=== PATIENT | female | born 1985 | race American Indian/Alaskan Native ===

== ENCOUNTER 2018-07-14 14:46 | Emergency (ER) | payer BC ==
[2018-07-14] MEDS ORDERED: KEPPRA 500 MG in D5W 100 ML IV ONE (15:17)
[2018-07-14] MEDS ORDERED: ATIVAN IV ONE (15:20)
[2018-07-14] MEDS ORDERED: ATIVAN ONE (15:24)
--- NOTE | 2018-07-14 15:26 | Emergency Department Report ---
ED Seizure HPI - General Chief Complaint: Seizure Stated Complaint: SEIZURE Time Seen by Provider: 07/14/18 15:11 Source: RN/MD Mode of arrival: Stretcher Limitations: No Limitations - History of Present Illness Initial Comments: Patient is 33 years old female with history of seizure on Keppra 750 twice a day. Patient brought to the ER via EMS for evaluation of episode of generalized tonic-clonic seizures. Patient brought from work. Patient stated that she missed her morning dose of Keppra today because she does not want to take it since it make her drowsy at work. Patient has 1 more episode of seizure in the emergency room. Patient given 2 mg of Ativan IV. Complaint: seizure -: Sudden Description of Episode: loss of consciousness, tonic-clonic movement, post-event confusion Witnessed:: Yes Trauma: No Seizure History: known seizure disorder Place: work Associated Symptoms: denies other symptoms - Related Data Previous Rx's Medication Instructions Recorded Last Taken Type levETIRAcetam [Keppra] 500 mg PO BID #60 tablet 01/13/14 02/23/15 09:00 Rx Allergies Allergy/AdvReac Type Severity Reaction Status Date / Time No Known Allergies Allergy Verified 12/21/14 16:38 ED Review of Systems ROS: Stated complaint: SEIZURE Other details as noted in HPI Comment: All other systems reviewed and negative Constitutional: denies: chills, fever Respiratory: denies: cough, orthopnea, shortness of breath, SOB with exertion, SOB at rest, wheezing Cardiovascular: denies: chest pain, palpitations, dyspnea on exertion Gastrointestinal: denies: abdominal pain, nausea, vomiting, diarrhea, con stipation, hematemesis, melena, hematochezia Musculoskeletal: denies: back pain Neurological: denies: headache, weakness, numbness, paresthesias, confusion, abnormal gait ED Past Medical Hx - Past Medical History Previous Medical History?: Yes Hx Hypertension: No Hx Congestive Heart Failure: No Hx Diabetes: No Hx Deep Vein Thrombosis: No Hx Renal Disease: No Hx Sickle Cell Disease: No Hx Seizures: Yes Hx Asthma: No Hx COPD: No Hx HIV: No Additional medical history: 'blood clot to brain' - Surgical History Past Surgical History?: Yes Hx Breast Surgery: Yes (right breast abscess) - Social History Smoking Status: Never Smoker Substance Use Type: None - Medications Home Medications: Home Medications Medication Instructions Recorded Confirmed Last Taken Type levETIRAcetam [Keppra] 500 mg PO BID #60 tablet 01/13/14 09/06/15 02/23/15 09:00 Rx ED Physical Exam - General Limitations: No Limitations General appearance: alert, in no apparent distress - Head Head exam: Present: atraumatic, normocephalic, normal inspection - Eye Eye exam: Present: normal appearance - ENT ENT exam: Present: normal exam, normal orophraynx, mucous membranes moist - Neck Neck exam: Present: normal inspection, full ROM. Absent: tenderness, meningismus, lymphadenopathy, thyromegaly - Respiratory Respiratory exam: Present: normal lung sounds bilaterally. Absent: respiratory distress, wheezes, rales, rhonchi, chest wall tenderness, accessory muscle use, decreased breath sounds, prolonged expiratory - Cardiovascular Cardiovascular Exam: Present: regular rate, normal rhythm, normal heart sounds - GI/Abdominal GI/Abdominal exam: Present: soft, normal bowel sounds. Absent: distended, tenderness, guarding, rebound, rigid, organomegaly, mass, bruit, pulsatile mass, hernia - Extremities Exam Extremities exam: Present: normal inspection, full ROM, normal capillary refill. Absent: pedal edema, calf tenderness - Back Exam Back exam: Present: normal inspection, full ROM. Absent: tenderness, CVA tenderness (R), CVA tenderness (L), muscle spasm, paraspinal tenderness, vertebral tenderness - Neurological Exam Neurological exam: Present: alert, oriented X3, CN II-XII intact, normal gait, reflexes normal - Skin Skin exam: Present: warm, intact, normal color ED Course Vital Signs 07/14/18 07/14/18 07/14/18 15:13 15:42 16:00 Temperature 99.2 F Pulse Rate 97 H 97 H 88 Respiratory 15 16 19 Rate Blood Pressure 128/97 117/66 118/64 O2 Sat by Pulse 100 100 97 Oximetry 07/14/18 07/14/18 07/14/18 16:30 17:00 17:30 Temperature Pulse Rate 100 H 77 79 Respiratory 14 21 24 Rate Blood Pressure 117/70 110/53 119/62 O2 Sat by Pulse 100 100 100 Oximetry ED Medical Decision Making - Lab Data Result diagrams: 07/14/18 15:27 07/14/18 15:27 - Medical Decision Making Patient is 33 years old female with history of seizure on Keppra 750 twice a day. Patient brought to the ER via EMS for evaluation of episode of generalized tonic-clonic seizures. Patient brought from work. Patient stated that she missed her morning dose of Keppra today because she does not want to take it since it make her drowsy at work. Patient has 1 more episode of seizure in the emergency room. Patient given 2 mg of Ativan IV. Patient also received Keppra 500 mg IV. No more seizure observed in the ER.. Patient is alert oriented 3 in no acute distress. I advised the patient to be compliant with her Keppra and NEUROLOGIST IN THE NEXT 2-3 DAYS. Critical care attestation.: If time is entered above; I have spent that time in minutes in the direct care of this critically ill patient, excluding procedure time. ED Disposition Clinical Impression: Seizure Disposition: [id number] TO HOME OR SELFCARE Is pt being admited?: No Condition: Stable Instructions: Recurrent Seizures Adult (ED) Referrals: PRIMARY CARE, [Primary Care Provider] - 3-5 Days
[2018-07-14] MEDS ORDERED: KEPPRA 1,000 MG/NS 0.75% 100ML 1,000 MG/100 ML BAG IV ONE (15:36)
[2018-07-14 15:43] LABS: Basophils % (Auto) 0.2 % (0.0-1.8); Eosinophils % (Auto) 0.5 % (0.0-4.3); Hematocrit 40.5 % (30.3-42.9); Hemoglobin 14.1 gm/dl (10.1-14.3); Lymphocytes # (Auto) 2.2 K/mm3 (1.2-5.4); Lymphocytes % (Auto) 25.8 % (13.4-35.0); Mean Corpuscular HGB Conc 35 % (30-34); Mean Corpuscular Volume 89 fl (79-97); Monocytes # (Auto) 0.5 K/mm3 (0.0-0.8); Monocytes % (Auto) 6.4 % (0.0-7.3); Platelet Count 263 K/mm3 (140-440); Red Blood Count 4.53 M/mm3 (3.65-5.03); Red Cell Distribution Width 12.8 % (13.2-15.2)
[2018-07-14 15:56] LABS: Alanine Aminotransferase 9 units/L (7-56); Albumin 4.8 g/dL (3.9-5); BUN/Creatinine Ratio 16; Blood Urea Nitrogen 16 mg/dL (7-17); Calcium 9.9 mg/dL (8.4-10.2); Hemolysis Index 14
[2018-07-14 16:09] LABS: Bilirubin,Direct < 0.2 mg/dL (0-0.2)
[2018-07-14 18:48] VITALS: BP 121/55
== END 2018-07-14 18:49 | disposition home or self-care (01) ==
LOC: ED 14:46
DX: R56.9 Unspecified convulsions (principal)
CPT/HCPCS: 36415; 80048; 80076; 84703; 85025; 96374; 99283; J1953; J2060